=== PATIENT | male | born 1980 | race Caucasian/White ===

== ENCOUNTER 2019-01-29 15:39 | Outpatient (REF) | payer BC, SELFPAY ==
[2019-01-29 21:04] LABS: Cholesterol 191 mg/dL (50-200); HDL Cholesterol 35 mg/dL (40-60); LDL CHOLESTEROL 133 mg/dL (<100); Triglyceride 177 mg/dL (30-150)
== END 2019-01-29 15:59 ==
LOC: NCHCN 15:39
PROVIDERS: PCP Registered Nurse; Visit Provider Internal Medicine
DX: Z13.220 Encounter for screening for lipoid disorders (principal)
CPT/HCPCS: 80061; 83721

== ENCOUNTER 2020-12-13 13:15 | Outpatient (REF) | payer BC, SELFPAY ==
[2020-12-13 13:33] LABS: Calculated LDL 140 mg/dL (<100); Cholesterol 203 mg/dL (<200); HDL Cholesterol 41 mg/dL (40-60); Triglyceride 112 mg/dL (<150)
== END 2020-12-13 13:16 | disposition home or self-care (01) ==
LOC: NCHCN 13:15
PROVIDERS: PCP Registered Nurse; Visit Provider Internal Medicine
DX: Z13.220 Encounter for screening for lipoid disorders (principal)
CPT/HCPCS: 80061

== ENCOUNTER 2022-12-19 15:22 | Outpatient (REF) | payer BC, SELFPAY ==
[2022-12-19 17:44] LABS: HCT 49.3 % (40.0-50.0); HGB 16.3 g/dL (13.5-17.5); MCH 26.8 pg (27.0-33.0); MCHC 33.1 % (32.0-36.0); MCV 81 fL (80-95); MPV 10.7 fL (8.0-11.0); Platelet Count 264 10^3/uL (130-400); RBC 6.08 10^6/uL (4.36-5.78); RDW 12.3 % (11.8-14.1); WBC 4.44 10^3/uL (4.4-10.8)
[2022-12-19 17:57] LABS: Calculated LDL 163 mg/dL (<100); Cholesterol 227 mg/dL (<200); Glucose 92 mg/dL (74-106); HDL Cholesterol 48 mg/dL (40-60); TSH 2.21 uIU/mL (0.36-3.74); Triglyceride 82 mg/dL (<150)
== END 2022-12-19 15:23 | disposition home or self-care (01) ==
LOC: NCHCN 15:22
PROVIDERS: PCP Registered Nurse; Visit Provider Internal Medicine
DX: R00.0 Tachycardia, unspecified (principal); Z00.00 Encounter for general adult medical examination without abnormal findings; Z13.1 Encounter for screening for diabetes mellitus; Z13.220 Encounter for screening for lipoid disorders
CPT/HCPCS: 80061; 82947; 85027; 84443

== ENCOUNTER 2024-01-09 07:56 | Outpatient (REF) | payer BC, SELFPAY ==
[2024-01-09 16:08] LABS: Anion Gap 9.6 mmol/L (3-11); BUN 33 mg/dL (7-18); CO2 27.4 mmol/L (21.0-32.0); CREATININE 1.3 mg/dL (0.70-1.30); Calcium 9.5 mg/dL (8.5-10.1); Calculated LDL 159 mg/dL (<100); Chloride 107 mmol/L (98-107); Cholesterol 220 mg/dL (<200); Estimated GFR 69.47 (mL/min/1.73m2); Glucose 98 mg/dL (74-106); HDL Cholesterol 45 mg/dL (40-60); Potassium 4.3 mmol/L (3.5-5.1); Sodium 144 mmol/L (136-145); Triglyceride 82 mg/dL (<150)
== END 2024-01-09 07:57 | disposition home or self-care (01) ==
LOC: NCHCN 07:56
PROVIDERS: PCP Registered Nurse; Visit Provider Internal Medicine
DX: Z00.00 Encounter for general adult medical examination without abnormal findings (principal)
CPT/HCPCS: 80048; 80061

== ENCOUNTER 2025-01-11 16:42 | Outpatient (REF) | payer BC, SELFPAY ==
[2025-01-11 21:59] LABS: ALT 42 U/L (16-63); AST 23 U/L (15-37); Albumin 4.2 g/dL (3.4-5.0); Alkaline Phosphatase 83 U/L (46-116); Anion Gap 2.9 mmol/L (3-11); BUN 27 mg/dL (7-18); Bilirubin, Total 0.7 mg/dL (0.2-1.0); CO2 30.1 mmol/L (21.0-32.0); CREATININE 1.2 mg/dL (0.70-1.30); Calcium 9.3 mg/dL (8.5-10.1); Calculated LDL 135 mg/dL (<100); Chloride 107 mmol/L (98-107); Cholesterol 201 mg/dL (<200); Glucose 103 mg/dL (74-106); HDL Cholesterol 46 mg/dL (>or=40); Potassium 4.6 mmol/L (3.5-5.1); Sodium 140 mmol/L (136-145); Total Protein 7.6 g/dL (6.4-8.2); Triglyceride 103 mg/dL (<150)
== END 2025-01-11 16:43 | disposition home or self-care (01) ==
LOC: NCHCN 16:42
PROVIDERS: PCP Registered Nurse; Visit Provider Internal Medicine
DX: E78.5 Hyperlipidemia, unspecified (principal)
CPT/HCPCS: 80053; 80061